=== PATIENT | female | born 1935 | race Caucasian/White ===

== ENCOUNTER → 2016-09-02 | Outpatient (CLI) | payer MEDICARE | END | disposition home or self-care (01) | LOC: PCVCCLINIC 15:00 | PROVIDERS: ATTEND Internal Medicine Cardiovascular Disease | DX: I25.10 Atherosclerotic heart disease of native coronary artery without angina pectoris (principal); I71.4 Abdominal aortic aneurysm, without rupture; I10 Essential (primary) hypertension; E78.00 Pure hypercholesterolemia, unspecified; I73.9 Peripheral vascular disease, unspecified; I77.9 Disorder of arteries and arterioles, unspecified; I70.1 Atherosclerosis of renal artery | CPT/HCPCS: 80061; 93005; G0463 ==

== ENCOUNTER → 2016-10-18 | Outpatient (CLI) | payer MEDICARE ==
--- NOTE | 2016-10-18 16:27 | PCVCIMAG ---
EXAM: BILATERAL LOWER EXTREMITY ARTERIAL DUPLEX INDICATION: Peripheral Arterial Disease. Leg pain. FINDINGS: Right Leg: Satisfactory arterial waveform in the common femoral and profunda femoral artery. Good arterial waveforms throughout the superficial femoral artery. Previous superficial femoral artery stent maintaining satisfactory patency. 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 Three-vessel runoff into the foot with mild blunting of the arterial waveforms. Left Leg: Satisfactory arterial waveforms in the common femoral and profunda femoral artery. Long segment occlusion throughout the superficial femoral artery and throughout the popliteal artery. Occlusion of the trifurcation with occlusion of the peroneal artery and posterior tibial artery. The distal portion of the anterior tibial artery refills. IMPRESSION: Previous right superficial femoral artery stent maintaining satisfactory patency. 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 LOC:[id number]
== END | disposition home or self-care (01) ==
LOC: PCVCIMAG 15:32
PROVIDERS: ATTEND Nuclear Medicine Nuclear Cardiology
DX: I73.9 Peripheral vascular disease, unspecified (principal); I25.10 Atherosclerotic heart disease of native coronary artery without angina pectoris; I77.9 Disorder of arteries and arterioles, unspecified; I10 Essential (primary) hypertension; E78.5 Hyperlipidemia, unspecified; I70.1 Atherosclerosis of renal artery; E78.00 Pure hypercholesterolemia, unspecified; Z79.82 Long term (current) use of aspirin; Z79.899 Other long term (current) drug therapy; Z87.891 Personal history of nicotine dependence
CPT/HCPCS: 93925; G0463

== ENCOUNTER → 2016-10-30 | Outpatient (CLI) | payer MEDICARE ==
--- NOTE | 2016-10-30 12:26 | PCVCIMAG ---
EXAM: VENOUS DUPLEX LEFT LOWER EXTREMITY INDICATION: Leg pain and swelling. FINDINGS: Left leg: No thrombus in the common femoral, main femoral, or popliteal veins. These veins are compressible with phasic flow. Calf veins are unremarkable where seen. IMPRESSION: No evidence of deep venous thrombosis in the left lower extremity as detailed above. LOC:[id number]
== END | disposition home or self-care (01) ==
LOC: PCVCIMAG 11:30
PROVIDERS: ATTEND Nuclear Medicine Nuclear Cardiology
DX: M79.605 Pain in left leg (principal); R22.42 Localized swelling, mass and lump, left lower limb
CPT/HCPCS: 93971

== ENCOUNTER → 2017-07-14 | Outpatient (CLI) | payer MEDICARE ==
[~2017-07-14] MED LIST: AMINOPHYLLINE 250 MG/10 ML VIAL.; REGADENOSON 0.4 MG/5 ML DISP.SYRIN. IV
== END | disposition home or self-care (01) ==
LOC: PCVCIMAG 09:06
DX: Z01.818 Encounter for other preprocedural examination (principal); I25.10 Atherosclerotic heart disease of native coronary artery without angina pectoris; I10 Essential (primary) hypertension; E78.5 Hyperlipidemia, unspecified; I73.9 Peripheral vascular disease, unspecified; Z87.891 Personal history of nicotine dependence
CPT/HCPCS: 78452; 93017; A9500; J0280; J2785

== ENCOUNTER → 2017-10-22 | Outpatient (CLI) | payer MEDICARE | END | disposition home or self-care (01) | LOC: PCVCIMAG 15:48 | DX: I73.9 Peripheral vascular disease, unspecified (principal); I25.10 Atherosclerotic heart disease of native coronary artery without angina pectoris; I77.9 Disorder of arteries and arterioles, unspecified; I10 Essential (primary) hypertension; I70.1 Atherosclerosis of renal artery; M48.50XG Collapsed vertebra, not elsewhere classified, site unspecified, subsequent encounter for fracture with delayed healing; E78.00 Pure hypercholesterolemia, unspecified; Z87.891 Personal history of nicotine dependence; Z79.82 Long term (current) use of aspirin; Z79.899 Other long term (current) drug therapy; Z88.8 Allergy status to other drugs, medicaments and biological substances | CPT/HCPCS: 93925; G0463 ==

== ENCOUNTER → 2017-11-11 | Outpatient (CLI) | payer MEDICARE | END | disposition home or self-care (01) | LOC: PCVCCLINIC 15:49 | DX: I73.9 Peripheral vascular disease, unspecified (principal); I77.9 Disorder of arteries and arterioles, unspecified; I25.10 Atherosclerotic heart disease of native coronary artery without angina pectoris; I10 Essential (primary) hypertension; I70.1 Atherosclerosis of renal artery; E78.00 Pure hypercholesterolemia, unspecified; M48.50XG Collapsed vertebra, not elsewhere classified, site unspecified, subsequent encounter for fracture with delayed healing; Z88.8 Allergy status to other drugs, medicaments and biological substances; Z87.891 Personal history of nicotine dependence; Z79.82 Long term (current) use of aspirin | CPT/HCPCS: G0463 ==

== ENCOUNTER → 2017-12-08 | Outpatient (CLI) | payer MEDICARE ==
--- NOTE | 2017-10-27 14:58 | PCVCINTER ---
EXAM: L5 KYPHOPLASTY INDICATION: Back pain not responding to conservative therapy. Osteoporosis. Subacute compression fractures. PROCEDURE: Procedure and risks of kyphoplasty including bleeding, infection, apparent cement placement, and neurologic deficit were discussed with the patient and consent obtained. IV conscious sedation was utilized with appropriate monitoring for 30 minutes. Patient was placed prone in the interventional suite and the back was prepped with a 10 minute Betadine scrub followed by Betadine pain with sterile draping. IV antibiotics were given. Under fluoroscopic guidance an 11-gauge kyphoplasty needle/cannula was advanced across the left L5 pedicle via a posterolateral approach and its tip positioned in the anterior-midline portion of the vertebral body under fluoroscopic guidance. The AVAmax kyphoplasty balloon was placed through the cannula into the vertebral body and inflated to restore height and create a void. Balloon was removed and catheter fusion cement was carefully instilled into the vertebra under continuous fluoroscopic guidance. Needle/cannula was removed. No immediate complications. FINDINGS: Technically satisfactory L5 kyphoplasty using fluoroscopic guidance. Adequate cement placement within the vertebral body. No worrisome cement placement. IMPRESSION: L5 kyphoplasty as described above. FOLLOW-UP: I will follow up with the patient in clinic in 2 weeks regarding their progress. LOC:[id number]
[~2017-12-08] MED LIST changes: -AMINOPHYLLINE 250 MG/10 ML VIAL.; +DIAZEPAM 10 MG TABLET. ONE; +IOHEXOL 300 MG/ML 50 ML VIAL. ONE; +IV NORMAL SALINE 500ML BAG 500 ML ONE; +LIDOCAINE 1% PF 30 ML VIAL. ONE; +LIDOCAINE 1%/EPI 1:100,000 20 ML VIAL. ONE; +MIDAZOLAM HCL/PF 2 MG/2 ML VIAL. ONE; -REGADENOSON 0.4 MG/5 ML DISP.SYRIN. IV; +VANCOMYCIN 1GM IVPB FOR OMNI 250 ML ONE; +fentaNYL PF VIAL 100 MCG/2 ML VIAL ONE
--- NOTE | 2017-12-08 12:00 | PCVCINTER ---
EXAM: L3 KYPHOPLASTY INDICATION: Back pain not responding to conservative therapy. Osteoporosis. Subacute compression fractures. PROCEDURE: Procedure and risks of kyphoplasty including bleeding, infection, apparent cement placement, and neurologic deficit were discussed with the patient and consent obtained. IV conscious sedation was utilized with appropriate monitoring for 30 minutes. Patient was placed prone in the interventional suite and the back was prepped with a 10 minute Betadine scrub followed by Betadine pain with sterile draping. IV antibiotics were given. Under fluoroscopic guidance an 11-gauge kyphoplasty needle/cannula was advanced across the left L3 pedicle via a posterolateral approach and its tip positioned in the anterior-midline portion of the vertebral body under fluoroscopic guidance. The kyphoplasty balloon was placed through the cannula into the vertebral body and inflated to restore height and create a void. Balloon was removed and catheter fusion cement was carefully instilled into the vertebra under continuous fluoroscopic guidance. Needle/cannula was removed. No immediate complications. FINDINGS: Technically satisfactory L3 kyphoplasty using fluoroscopic guidance. Adequate cement placement within the vertebral body. No worrisome cement placement. IMPRESSION: L3 kyphoplasty as described above. FOLLOW-UP: I will follow up with the patient in clinic in 2 weeks regarding their progress. LOC:[id number]
== END | disposition home or self-care (01) ==
LOC: PCVCINTER 09:58
PROVIDERS: ATTEND Internal Medicine Cardiovascular Disease
DX: M80.88XA Other osteoporosis with current pathological fracture, vertebra(e), initial encounter for fracture (principal); S32.030A Wedge compression fracture of third lumbar vertebra, initial encounter for closed fracture; M54.5 Low back pain; I10 Essential (primary) hypertension; I25.10 Atherosclerotic heart disease of native coronary artery without angina pectoris; Z79.82 Long term (current) use of aspirin; Z88.8 Allergy status to other drugs, medicaments and biological substances; I70.1 Atherosclerosis of renal artery; Z87.891 Personal history of nicotine dependence; E78.00 Pure hypercholesterolemia, unspecified; Z79.899 Other long term (current) drug therapy
CPT/HCPCS: 22514; J2250; J3010; J3370; J3490; J7040; Q9967; 99152; 99153

== ENCOUNTER → 2017-12-24 | Outpatient (CLI) | payer MEDICARE ==
[~2017-12-24] MED LIST changes: +HYDROcodone/APAP 5/325MG 1 TAB TABLET ONE; +LIDOCAINE 1% Multi-Dose 50 ML VIAL. ONE; -LIDOCAINE 1% PF 30 ML VIAL. ONE; -LIDOCAINE 1%/EPI 1:100,000 20 ML VIAL. ONE; -VANCOMYCIN 1GM IVPB FOR OMNI 250 ML ONE
--- NOTE | 2017-12-24 09:39 | PCVCINTER ---
EXAM: T11 KYPHOPLASTY INDICATION: Back pain not responding to conservative therapy. Osteoporosis. Subacute compression fractures. PROCEDURE: Procedure and risks of kyphoplasty including bleeding, infection, apparent cement placement, and neurologic deficit were discussed with the patient and consent obtained. IV conscious sedation was utilized with appropriate monitoring for 30 minutes. Patient was placed prone in the interventional suite and the back was prepped with a 10 minute Betadine scrub followed by Betadine pain with sterile draping. IV antibiotics were given. Under fluoroscopic guidance an 11-gauge kyphoplasty needle/cannula was advanced across the left T11 pedicle via a posterolateral approach and its tip positioned in the anterior-midline portion of the vertebral body under fluoroscopic guidance. The kyphoplasty balloon was placed through the cannula into the vertebral body and inflated to restore height and create a void. Balloon was removed and catheter fusion cement was carefully instilled into the vertebra under continuous fluoroscopic guidance. Needle/cannula was removed. No immediate complications. FINDINGS: Technically satisfactory T11 kyphoplasty using fluoroscopic guidance. Adequate cement placement within the vertebral body. No worrisome cement placement. IMPRESSION: T11 kyphoplasty as described above. FOLLOW-UP: I will follow up with the patient in clinic in 2 weeks regarding their progress. LOC:[id number]
== END ==
LOC: PCVCINTER 08:13
PROVIDERS: ATTEND Nuclear Medicine Nuclear Cardiology
DX: S22.088A Other fracture of T11-T12 vertebra, initial encounter for closed fracture (principal); X58.XXXA Exposure to other specified factors, initial encounter; Y93.89 Activity, other specified; Y92.89 Other specified places as the place of occurrence of the external cause; Y99.8 Other external cause status; S32.030A Wedge compression fracture of third lumbar vertebra, initial encounter for closed fracture; I70.1 Atherosclerosis of renal artery; I25.10 Atherosclerotic heart disease of native coronary artery without angina pectoris; I10 Essential (primary) hypertension; E78.00 Pure hypercholesterolemia, unspecified; M81.0 Age-related osteoporosis without current pathological fracture; Z87.891 Personal history of nicotine dependence; I73.9 Peripheral vascular disease, unspecified; Z79.82 Long term (current) use of aspirin; Z88.8 Allergy status to other drugs, medicaments and biological substances; Z79.899 Other long term (current) drug therapy
CPT/HCPCS: 22513; 99152; 99153; J2250; J3010; J7040; Q9967

== ENCOUNTER → 2018-08-07 | Outpatient (CLI) | payer MEDICARE | END | disposition home or self-care (01) | LOC: PCVCCLINIC 15:49 | PROVIDERS: ATTEND Internal Medicine Cardiovascular Disease | DX: I25.10 Atherosclerotic heart disease of native coronary artery without angina pectoris (principal); I65.29 Occlusion and stenosis of unspecified carotid artery; I10 Essential (primary) hypertension; I73.9 Peripheral vascular disease, unspecified; I70.1 Atherosclerosis of renal artery; E78.00 Pure hypercholesterolemia, unspecified; Z87.891 Personal history of nicotine dependence; Z79.899 Other long term (current) drug therapy | CPT/HCPCS: 36415; 80061; 93005; G0463 ==

== ENCOUNTER → 2019-03-26 | Outpatient (CLI) | payer MEDICARE | END | disposition home or self-care (01) | LOC: PCVCCLINIC 16:02 | PROVIDERS: ATTEND Internal Medicine Cardiovascular Disease | DX: I25.10 Atherosclerotic heart disease of native coronary artery without angina pectoris (principal); E78.00 Pure hypercholesterolemia, unspecified; I10 Essential (primary) hypertension; R94.31 Abnormal electrocardiogram [ECG] [EKG]; I65.23 Occlusion and stenosis of bilateral carotid arteries; M54.6 Pain in thoracic spine; I73.9 Peripheral vascular disease, unspecified; I70.1 Atherosclerosis of renal artery; Z87.81 Personal history of (healed) traumatic fracture; Z98.890 Other specified postprocedural states; Z90.49 Acquired absence of other specified parts of digestive tract; Z90.710 Acquired absence of both cervix and uterus; Z82.49 Family history of ischemic heart disease and other diseases of the circulatory system; Z87.891 Personal history of nicotine dependence; Z88.5 Allergy status to narcotic agent; Z88.0 Allergy status to penicillin; Z88.1 Allergy status to other antibiotic agents; Z79.899 Other long term (current) drug therapy | CPT/HCPCS: 36415; 80061; 93005; G0463 ==